=== PATIENT | male | born 1955 | race Caucasian/White ===

== ENCOUNTER 2016-10-31 06:21 | Inpatient (IN) | payer OTHER ==
[2016-10-31] VITALS (10 sets, daily range): BP systolic 112–135; BP diastolic 67–86
[~2016-10-31] VITALS: Ht 175.3 cm; Wt 79.4 kg
--- NOTE | ~2016-10-31 | O ---
[facility] [place] [address] OPERATIVE REPORT Name: KAY DUDLEY Room #: 440-P ADM IN M.R.#: [id number] Admission: 10/31/16 Attend Phys: Fransisca Arias MD, Discharge: Date of : 55 Report #: [id number] THIS REPORT FOR: //name// CC: Mike Arias DATE OF SERVICE: 10/31/2016 PREOPERATIVE DIAGNOSES: 1. Recurrent incisional ventral hernias. 2. Recurrent parastomal hernia. 3. Hypertension. 4. Hyperlipidemia. 5. Anxiety. POSTOPERATIVE DIAGNOSES: 1. Multiple incarcerated recurrent incisional ventral hernias. 2. Incarcerated recurrent parastomal hernia. 3. Hypertension. 4. Hyperlipidemia. 5. Anxiety. 6. Nonviable/ischemic abdominal wall fascia. 7. Intraabdominal adhesions. PROCEDURES PERFORMED: 1. Exploratory laparotomy. 2. Extensive lysis of adhesions. 3. Debridement of ischemic nonviable abdominal wall fascia back to healthy vascularized fascia throughout. 4. Bilateral component separation of the anterior abdominal wall. 5. Complex abdominal wall reconstruction with open repair of multiple incarcerated recurrent incisional ventral and parastomal hernias with bioresorbable mesh. 6. Adjacent tissue transfer closure of the anterior abdominal wall to assist in soft tissue coverage, ultimately measuring 32 x 27 cm in dimension (864 square cm). 7. Placement of a topical wound VAC device (Prevena). SURGEON: Fransisca Arias MD. FIRE SPRINKLER APPARATUS INSPECTOR: Casey Jameson MD. ANESTHESIA: General endotracheal anesthesia. ESTIMATED BLOOD LOSS: Minimal (less than 20 mL). [facility] [address] [place] [address] OPERATIVE REPORT Name: KAY DUDLEY Room #: 440-P [facility] IN .R.#: [id number] Admission: 10/31/16 Attend Phys: Fransisca Arias MD, Discharge: Date of : 55 Report #: [id number] COMPLICATIONS: None appreciated. SPECIMEN: Ischemic nonviable abdominal wall fascia to pathology. INDICATIONS: The patient is a 60-year-old male with a history of undergoing an elective laparoscopic right hemicolectomy for a nonresectable flat adenomatous polyp by endoscopy. The patient unfortunately sustained an anastomotic leak that required reexploration with a washout and placement of a diverting loop ileostomy. The patient has then subsequently undergone ileostomy reversal with suture repair of a parastomal hernia and now has bulging at numerous sites throughout his abdominal domain, as well as his prior ostomy site, consistent with incarcerated recurrent incisional ventral hernias and a recurrent parastomal hernia. Intraoperative findings of all hernias being incarcerated with omentum were found, that required a lengthy lysis of adhesions and complex techniques for abdominal wall closure for definitive management. DESCRIPTION OF PROCEDURE: After explaining the risks, benefits, and alternatives of the procedure with the patient in detail in the preoperative holding area and obtaining a written consent, the patient was brought to the operating room and placed supine on the operating room table. After conducting a thorough timeout procedure, verifying the correct patient and procedure, the patient was given general endotracheal anesthesia. Once adequate anesthesia was obtained, his SCDs were hooked up to the pneumatic compression device. He was given a preoperative dose of antibiotics in line with the SCIP protocol. The patient's abdomen was prepped and draped in the standard surgical sterile fashion. A #10 bladed scalpel was used to create a longitudinal midline incision from the supraumbilical location down to the suprapubic location following his prior midline incision site. Electrocautery was used to carry this down through the skin and subcutaneous tissues to ensure hemostasis. Once I arrived upon the level of the fascia, the patient had easily palpable hernias throughout with incarcerated omentum protruding through them. This was milton to a Vietnamese cheese defect. A finger was placed in the abdomen through one of the hernia defects, and this allowed me to open the entire midline fascial wound in a controlled fashion to prevent injury from electrocautery burn. Once I had opened the entirety of the midline fascial wound, I had bisected at least 8 different incarcerated recurrent incisional hernias, down his longitudinal midline wound. I now proceeded to continue lysis of adhesions to clear off the posterior aspect of the anterior abdominal wall throughout, and luckily, there was no evidence of bowel tethered to the abdominal wall whatsoever. Once I had fully freed all adhesions and was able to evaluate the prior ostomy site, there was incarcerated omentum contained within that recurrent parastomal hernia as well. The omentum was freed with electrocautery in standard fashion. I now proceeded to perform a debridement of all nonviable ischemic abdominal wall fascial tissue and hernia sac. This was carried back to healthy vascularized tissue, excising all nonviable tissue and passing off the field as specimen. [facility] [address] [place] [address] OPERATIVE REPORT Name: KAY DUDLEY Room #: 440-P ADM IN Kim.#: [id number] Admission: 10/31/16 Attend Phys: Fransisca Arias MD, Discharge: Date of : 55 Report #: [id number] Applying Amanda clamps to the healthy fascial edges at this juncture, and making attempts at the medializing the fascial edges, showed that they could be brought together, but with extreme tension down the midline. As the patient had a prior ostomy site that appeared to be located at the lateral border of the rectus abdominis muscle, I proceeded to perform the bilateral component separation technique to hopefully allow midline fascial closure, that is not under tension, and will lead to lower recurrence rates, both for the midline wound, as well as the prior stoma site. I proceeded to clean off the fascia circumferentially, external to the anterior rectus fascia. This was done using electrocautery and was carried back, as far laterally circumferentially as possible, which created large skin flaps. I first attempted to get into the transversus space, which was extremely difficult, secondary to the multiple prior hernia repairs and the stoma site. As such, I elected for creating the skin flaps. This was taken back as far circumferentially as possible, 4 cm past the old ostomy site in the right lower quadrant. I now was able to suture close the recurrent parastomal hernia from the inside, using #1 PDS suture in standard running fashion to close this with full thickness bites. Evaluation of the abdominal wall. Now let me to the bilateral component separation, which was performed using electrocautery to score along the lateral portal, the rectus abdominis muscles bilaterally and carried as far in craniocaudal dimension as possible. This allowed easy medial mobilization of the abdominal wall for closure. I now proceeded to close the midline fascial wound using looped #1 PDS suture in standard running fashion from inferior to superior aspects, where it was tied down in the superior most portion of the wound. The subcutaneous wound was now copiously irrigated. I now selected a piece of Phasix mesh that measured 20 x 15 cm in dimension. This was placed as an onlay to buttress the repair and was trimmed to size, and anchored into position using numerous sutures of 0 PDS. This gave us an excellently buttressed hernia repair with proper orientation of the mesh overlying, both the midline fascial wound, as well as the suture repair of the recurrent parastomal hernia. I now placed a 19-Romanian round Allen-Lees drain, brought out through the right lower quadrant of the abdominal wall, which was sutured to the skin using 2-0 nylon in standard fashion. I now performed an adjacent tissue transfer technique to close the soft tissues of the anterior abdominal wall. The skin flaps were elevated and relaxing incisions were made internally using electrocautery. This allowed me to medially rotate vascularized pedicles of subcutaneous fat, overlying the Phasix mesh, which was then anchored down the midline using numerous interrupted inverted 3-0 Vicryl sutures in standard fashion. This gave us excellent soft tissue coverage over the Phasix bioresorbable mesh in question. I now used additional 3-0 Vicryl to anchor the dermis in standard interrupted inverted fashion and used the skin vinicius to close the skin. As the patient is at risk of recurrence and wound infections, I did place a topical wound VAC (Prevena) device in standard fashion, which was then attached to the self contained negative pressure apparatus, and we saw no evidence of a leak. An abdominal binder was then placed. At the end of the procedure, all instrument, needle, and sponge counts were correct. The patient tolerated the procedure without incident, was [address] [address] OPERATIVE REPORT Name: KAY DUDLEY MARTHA Room #: 440-P [facility] IN M.R.#: [id number] Admission: 10/31/16 Attend Phys: Fransisca Arias MD, Discharge: Date of : 55 Report #: [id number] awakened in the operating room and transitioned to the recovery room in stable condition with no apparent complications. <ELECTRONICALLY SIGNED> By: Fransisca Arias MD, FACS 11/01/16 0738 [id number] [id number] Fransisca Arias MD, FACS /nt
--- NOTE | ~2016-10-31 | EKG ---
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 : 1955 Requested By: Fransisca Arias Order Number: [id number] MD: Duarte Brock Measurements Intervals [place] Rate: 73 P: 32 NV: 119 QRS: 18 QRSD: 93 T: 62 QT: 399 QTc: 440 Interpretive Statements Sinus rhythm Borderline short NV interval Baseline wander in lead(s) I,II,aVR Compared to ECG 07/12/2012 14:17:10 Sinus tachycardia no longer present Electronically Signed On 10-31-2016 8:39:51 CDT by Duarte Brock [email or web address] <ELECTRONICALLY SIGNED> By: Duarte Brock MD, FACC 10/31/16 0839 9 9 Duarte Brock MD, [facility] /EPI
[~2016-10-31 06:21] MED LIST: ATIVAN0.5 MG PO; CENTRUM SILVER1 EAC2 PO; MAXZIDE-25 MG1 EACH PO; NORVASC10 MG PO; PRAVACHOL40 MG PO; PROTONIX40 M1 PO
[2016-10-31 09:01] LABS: CALCIUM 9.1 mg/dL (8.5-10.1); CREATININE 1.4 mg/dL (0.7-1.3); POTASSIUM 3.7 mmol/L (3.5-5.1)
[2016-11-01 03:55] VITALS: BP 118/70
[2016-11-01 05:51] LABS: HEMATOCRIT 39.2 % (42.0-52.0); HEMOGLOBIN 12.8 gm/dL (14.0-18.0); MCH 28.1 pg (26.0-34.0); MCHC 32.6 g/dL (28.0-37.0); MCV 86.2 fL (80.0-100.0); RBC 4.55 mil/uL (4.50-6.00); RDW 13.9 % (10.5-14.5); WBC 14.5 thou/uL (4.0-11.0)
[2016-11-01 06:08] LABS: CALCIUM 8.7 mg/dL (8.5-10.1); CREATININE 1.3 mg/dL (0.7-1.3); POTASSIUM 3.7 mmol/L (3.5-5.1)
[2016-11-01 08:00] VITALS: BP 125/84
[2016-11-01 16:00] VITALS: BP 99/71
[2016-11-01 20:10] VITALS: BP 129/74
[2016-11-02 04:10] VITALS: BP 116/78
[2016-11-02 06:06] LABS: ABSOLUTE NEUTROPHILS 5.9 thou/uL (1.4-8.2); BASOPHILS 0.7 % (0.0-2.0); EOSINOPHILS 4.8 % (0.0-3.0); HEMATOCRIT 39.1 % (42.0-52.0); HEMOGLOBIN 12.8 gm/dL (14.0-18.0); LYMPHOCYTES 20.6 % (24.0-44.0); MCH 28.2 pg (26.0-34.0); MCHC 32.8 g/dL (28.0-37.0); MONOCYTES 10.3 % (1.0-8.0); PLATELET COUNT 210 thou/uL (150-400); POLYS 63.6 % (36.0-66.0); RBC 4.55 mil/uL (4.50-6.00); RDW 13.6 % (10.5-14.5); WBC 9.3 thou/uL (4.0-11.0)
[2016-11-02 06:20] LABS: CALCIUM 8.6 mg/dL (8.5-10.1); CREATININE 1.3 mg/dL (0.7-1.3); POTASSIUM 3.8 mmol/L (3.5-5.1)
[2016-11-02 06:52] LABS: MANUAL DIFF NO
[2016-11-02 08:57] VITALS: BP 116/80
[2016-11-02 16:26] VITALS: BP 131/91
[2016-11-02 19:30] VITALS: BP 125/75
[2016-11-03 06:06] VITALS: BP 122/72
[2016-11-03 06:08] LABS: ABSOLUTE NEUTROPHILS 5.8 thou/uL (1.4-8.2); BASOPHILS 0.6 % (0.0-2.0); EOSINOPHILS 4.6 % (0.0-3.0); HEMATOCRIT 39.8 % (42.0-52.0); HEMOGLOBIN 13.3 gm/dL (14.0-18.0); LYMPHOCYTES 18.7 % (24.0-44.0); MCH 28.7 pg (26.0-34.0); MCHC 33.4 g/dL (28.0-37.0); MCV 85.9 fL (80.0-100.0); MONOCYTES 10.6 % (1.0-8.0); PLATELET COUNT 217 thou/uL (150-400); POLYS 65.5 % (36.0-66.0); RBC 4.63 mil/uL (4.50-6.00); RDW 13.7 % (10.5-14.5); WBC 8.9 thou/uL (4.0-11.0)
[2016-11-03 06:13] LABS: MANUAL DIFF NO
[2016-11-03 06:39] LABS: CALCIUM 8.7 mg/dL (8.5-10.1); CREATININE 1.4 mg/dL (0.7-1.3); POTASSIUM 3.8 mmol/L (3.5-5.1)
[2016-11-03 07:30] VITALS: BP 123/75
[2016-11-03 14:53] VITALS: BP 123/75
[2016-11-03 15:48] VITALS: BP 123/75
== END 2016-11-03 18:08 | disposition home or self-care (01) | DRG 337 ==
LOC: 4S 06:21 → TBA 06:21 → 4S 10:47 → PRE 12:01 → 4S 11-03 18:08
PROVIDERS: Surgery
PROC: 0WUF0JZ Supplement Abdominal Wall with Synthetic Substitute, Open Approach (ICD-10-PCS; principal; 2016-10-31)
PROC: 0KBK0ZZ Excision of Right Abdomen Muscle, Open Approach (ICD-10-PCS; principal; 2016-10-31)
PROC: 0DNS0ZZ (ICD-10-PCS; principal; 2016-10-31)
PROC: 0KBL0ZZ Excision of Left Abdomen Muscle, Open Approach (ICD-10-PCS; principal; 2016-10-31)
PROC: 0JX80ZC Transfer Abdomen Subcutaneous Tissue and Fascia with Skin, Subcutaneous Tissue and Fascia, Open Approach (ICD-10-PCS; principal; 2016-10-31)
DX: K43.0 Incisional hernia with obstruction, without gangrene (principal); K43.3 Parastomal hernia with obstruction, without gangrene; I10 Essential (primary) hypertension; E78.5 Hyperlipidemia, unspecified; F41.9 Anxiety disorder, unspecified; K66.0 Peritoneal adhesions (postprocedural) (postinfection)
CPT/HCPCS: 10102; 50010; 50101; 50331; 50386; 50953; 51412; 54109; 56524; 56525; 56527; 56530; 57092; 62110; 62900; 70005

== ENCOUNTER 2017-08-26 12:52 | Emergency (ER) | payer OTHER ==
[~2017-08-26] VITALS: Ht 172.7 cm; Wt 86.2 kg
[2017-08-26 14:02] LABS: URINE BILIRUBIN NEGATIVE (Negative); URINE BLOOD NEGATIVE (Negative); URINE CLARITY CLEAR; URINE COLOR YELLOW; URINE GLUCOSE-RANDOM* NEGATIVE (Negative); URINE KETONES NEGATIVE (Negative); URINE LEUKOCYTES NEGATIVE (Negative); URINE NITRITE NEGATIVE (Negative); URINE PROTEIN (DIPSTICK) NEGATIVE (Negative); URINE SPECIFIC GRAVITY <= 1.005 (1.005-1.035); URINE UROBILINOGEN 0.2 E.U./dl (0.2-1.0)
== END 2017-08-26 16:55 | disposition home or self-care (01) ==
LOC: ER 12:52
PROVIDERS: Nurse Practitioner Family
DX: S20.211A Contusion of right front wall of thorax, initial encounter (principal); S13.4XXA Sprain of ligaments of cervical spine, initial encounter; I10 Essential (primary) hypertension; K21.9 Gastro-esophageal reflux disease without esophagitis; E78.00 Pure hypercholesterolemia, unspecified; F41.9 Anxiety disorder, unspecified; F17.200 Nicotine dependence, unspecified, uncomplicated; Z90.89 Acquired absence of other organs; Z90.49 Acquired absence of other specified parts of digestive tract; V40.5XXA Car driver injured in collision with pedestrian or animal in traffic accident, initial encounter; Y93.I9 Activity, other involving external motion; Y92.89 Other specified places as the place of occurrence of the external cause; Y99.8 Other external cause status

== ENCOUNTER → 2017-12-25 | Day surgery (SDC) | payer OTHER ==
[~2017-12-25] VITALS: Ht 172.7 cm; Wt 88.5 kg
[~2017-12-25] MED LIST changes: +ASPIR 8181 MG PO; +IBUPROFEN 600600 M1 PO; +OXYCODONE-ACET1 EACH PO
== END | disposition home or self-care (01) ==
LOC: TBA 05:44 → OR 05:44
DX: K43.0 Incisional hernia with obstruction, without gangrene (principal); Z53.8 Procedure and treatment not carried out for other reasons; F32.9 Major depressive disorder, single episode, unspecified; F41.9 Anxiety disorder, unspecified; F17.220 Nicotine dependence, chewing tobacco, uncomplicated; I10 Essential (primary) hypertension; E78.5 Hyperlipidemia, unspecified; K21.9 Gastro-esophageal reflux disease without esophagitis; Z98.0 Intestinal bypass and anastomosis status; Z98.52 Vasectomy status; Z79.899 Other long term (current) drug therapy; Z98.890 Other specified postprocedural states

== ENCOUNTER 2018-04-05 08:58 | Emergency (ER) | payer OTHER ==
[~2018-04-05] VITALS: Ht 172.7 cm; Wt 89.8 kg
--- NOTE | ~2018-04-05 | EKG ---
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
[2018-04-05] MEDS ORDERED: XANAX 0.5 MG0.5 M1 PO (09:13)
[2018-04-05 09:15] LABS: URINE BILIRUBIN NEGATIVE (Negative); URINE BLOOD NEGATIVE (Negative); URINE CLARITY CLEAR; URINE COLOR YELLOW; URINE GLUCOSE-RANDOM* NEGATIVE (Negative); URINE KETONES NEGATIVE (Negative); URINE LEUKOCYTES-REFLEX NEGATIVE (Negative); URINE NITRITE-REFLEX NEGATIVE (Negative); URINE PROTEIN (DIPSTICK) NEGATIVE (Negative); URINE UROBILINOGEN 0.2 E.U./dl (0.2-1.0)
[2018-04-05 09:41] LABS: BASOPHILS 0.6 % (0.0-2.0); EOSINOPHILS 2.5 % (0.0-3.0); HEMATOCRIT 44.8 % (42.0-52.0); HEMOGLOBIN 15.2 gm/dL (14.0-18.0); MCH 29.7 pg (26.0-34.0); MCHC 33.8 g/dL (28.0-37.0); MCV 87.9 fL (80.0-100.0); MONOCYTES 8.1 % (1.0-8.0); PLATELET COUNT 235 thou/uL (150-400); POLYS 56.8 % (36.0-66.0); RDW 14.1 % (10.5-14.5); WBC 8.8 thou/uL (4.0-11.0)
[2018-04-05 09:48] LABS: CREATININE 1.1 mg/dL (0.7-1.3); POTASSIUM 3.7 mmol/L (3.5-5.1)
[2018-04-05 09:53] LABS: ALBUMIN 3.8 g/dL (3.4-5.0); TOTAL BILIRUBIN 0.4 mg/dL (<0.1-1.0); TOTAL PROTEIN 7.4 g/dL (6.4-8.2)
[2018-04-05] MEDS ORDERED: NORCO 5-325 TA1 EACH PO (11:02)
[2018-04-05] MEDS ORDERED: ONDANSETRON HCL4 M2 PO (11:02)
[2018-04-05 11:22] VITALS: BP 135/90
== END 2018-04-05 11:23 | disposition home or self-care (01) ==
LOC: ER 08:58
PROVIDERS: Physician Assistant
DX: K43.9 Ventral hernia without obstruction or gangrene (principal); R10.9 Unspecified abdominal pain; R11.0 Nausea; I10 Essential (primary) hypertension; K21.9 Gastro-esophageal reflux disease without esophagitis; E78.5 Hyperlipidemia, unspecified; Z72.0 Tobacco use; Z90.49 Acquired absence of other specified parts of digestive tract; Z93.3 Colostomy status

== ENCOUNTER → 2020-02-07 | Outpatient (CLI) | payer OTHER ==
[~2020-02-07] MED LIST changes: +NORCO 5-325 TA1 EACH PO; +ONDANSETRON HCL4 M2 PO; +XANAX 0.5 MG0.5 M1 PO
== END ==
LOC: RAD 13:41
DX: M47.815 Spondylosis without myelopathy or radiculopathy, thoracolumbar region (principal)